=== PATIENT | female | born 1935 | race Caucasian/White ===

== ENCOUNTER 2018-06-29 15:02 | Emergency (ER) | payer OTHER, BC ==
[~2018-06-29] VITALS: Ht 152.4 cm; Wt 75.3 kg
[2018-06-29 15:09] VITALS: Ht 152.4 cm; Wt 75.3 kg
[2018-06-29 16:18] LABS: BASOPHIL % 2.4 % (0-2); PLATELET COUNT 248 x10^3mcL (130-400); RED CELL DISTRIBUTION WIDTH 14.2 % (11.5-14.5)
[2018-06-29 16:24] LABS: CARBON DIOXIDE 26.1 mmol/L (21-32); CHLORIDE SERUM 102 mmol/L (98-107); CREATININE SERUM 0.8 mg/dL (0.6-1.0); GLUCOSE SERUM 109 mg/dL (74-106); POTASSIUM SERUM 3.9 mmol/L (3.5-5.1); SODIUM SERUM 139 mmol/L (136-145)
[2018-06-29 16:30] LABS: ALBUMIN 3.5 g/dL (3.4-5.0); ALKALINE PHOSPHATASE 104 U/L (46-116); ALT/SGPT 25 U/L (14-59); AST/SGOT 23 U/L (15-37); BILIRUBIN TOTAL 0.2 mg/dL (0.20-1.00); HDL CHOLESTEROL 58 mg/dL (40-60); TOTAL PROTEIN, SERUM 7.3 g/dL (6.4-8.2); TRIGLYCERIDES 104 mg/dL (<150)
[2018-06-29 16:33] LABS: CHOLESTEROL 203 mg/dL (<200); CHOLESTEROL/HDL RATIO 3.5
[2018-06-29 16:59] LABS: FREE T4 1.04 ng/dL (0.76-1.46); T3 TOTAL 1.3 ng/mL; T4(THYROXINE) 10.1 ug/dL (4.7-13.3)
[2018-06-29 17:31] VITALS: BP 176/84
== END 2018-06-29 17:31 | disposition home or self-care (01) ==
LOC: ED 15:02
PROVIDERS: Emergency Medicine
DX: I10 Essential (primary) hypertension (principal); Z98.890 Other specified postprocedural states
CPT/HCPCS: 84439; J3490; Q0092

== ENCOUNTER 2018-07-02 09:18 | Emergency (ER) | payer OTHER, BC ==
[~2018-07-02] VITALS: Ht 152.4 cm; Wt 75.3 kg
[2018-07-02 09:25] VITALS: Ht 152.4 cm; Wt 75.3 kg
[2018-07-02 10:45] VITALS: BP 143/63
== END 2018-07-02 10:45 | disposition home or self-care (01) ==
LOC: ED 09:18
DX: I10 Essential (primary) hypertension (principal); Z98.890 Other specified postprocedural states